=== PATIENT | male | born 1940 | race Asian ===

== ENCOUNTER 2018-01-31 13:16 | Inpatient (IN) | payer OTHER ==
--- NOTE | 2018-01-31 14:29 | ED Physician Chart ---
ED Chief Complaint/HPI - Patient Information Date Seen:: 01/31/18 Time Seen:: 13:40 Chief Complaint:: Right Knee Pain History of Present Illness:: onset x 3 days of sharp MS type right knee pain and swelling; pt denies trauma, H/As, neck pain, weakness, dizziness, paresthesias, vertigo, C/P, SOB, Abd. Pain , A/N/V/D/C, fever, chills, or urinary s/s Allergies:: Allergies Allergy/AdvReac Type Severity Reaction Status Date / Time No Known Allergies Allergy Verified 01/31/18 13:34 Vitals:: Vital Signs - 8 hr 01/31/18 13:40 Temp 98.5 F HR 94 RR 16 BP 100/84 O2 Sat % 98 Historian:: Patient, Family Member Review:: Nurse's Note Reviewed ED Review of Systems - Review of Systems General/Constitutional: No fever, No chills, No weight loss, No weakness, No diaphoresis, No edema, No loss of appetite Skin: No skin lesions, No rash, No bruising Head: No headache, No light-headedness Eyes: No loss of vision, No pain, No diplopia ENT: No earache, No nasal drainage, No sore throat, No tinnitus Neck: No neck pain, No swelling, No thyromegaly, No stiffness, No mass noted Cardio Vascular: No chest pain, No palpitations, No PND, No orthopnea, No edema Pulmonary: No SOB, No cough, No sputum, No wheezing GI: No nausea, No vomiting, No diarrhea, No pain, No melena, No hematochezia, No constipation, No hematemesis G/U: No dysuria, No frequency, No hematuria, No nacturia Musculoskeletal: Bone or joint pain, No back pain, Muscle pain Endocrine: No polyuria, No polydipsia Psychiatric: No prior psych history, No depression, No anxiety, No suicidal ideation, No homicidal ideation, No auditory hallucination, No visual hallucination Hematopoietic: No bruising, No lymphadenopathy Allergic/Immuno: No urticaria, No angioedema Neurological: No syncope, No focal symptoms, No weakness, No paresthesia, No headache, No seizure, No dizziness, No confusion, No vertigo ED Past Medical History - Past Medical History Obtainable: Yes Past Medical History: HTN, CAD, Dyslipidemia, Arthritis Family History: Heart disease, HTN Social History: Non Smoker, No Alcohol, No Drug Use, Surgical History: None Psychiatricy History: None Medication: Reviewed Family Medical History - Family Member Father Living Status: Hx Family Cancer: Yes ED Physical Exam - Physical Examination General/Constitutional: Awake, Well-developed, well-nourished, Alert, No distress, GCS 15, Non-toxic appearing, Ambulatory Head: Atraumatic Eyes: Lids, conjuctiva normal, PERRL, EOMI Skin: Nl inspection, No rash, No skin lesions, No ecchymosis, Well hydrated, No lymphadenopathy ENMT: External ears, nose nl, TM canals nl, Nasal exam nl, Lips, teeth, gums nl , Oropharynx nl, Tonsils nl Neck: Nontender, Full ROM w/o pain, No JVD, No nuchal rigidity, No bruit, No mass, No stridor Respiratory: Nl effort/Exclusion, Clear to Auscultation, No Wheeze/Rhonchi/Rales Cardio Vascular: No murmur, gallop, rubs, NL S1 S2, Carotid/Femoral/Distal pulses equal bilaterally Other Cardio Vascular comments:: Irregular Irregular Rhythm GI: No tenderness/rebounding/guarding, No organomegaly, No hernia, Normal BS's, Nondistended, No mass/bruits, No McBurney tenderness : No CVA tenderness Extremities: Full ROM, normal strength in all extremities, No edema, Normal digits & nails Other Extremities comments:: + Right Knee Tenderness and Swelling; + Right Knee Effusion; good NV functions Neuro/Psych: Alert/oriented, DTR's symmetric, Normal sensory exam, Normal motor strength, Judgement/insight normal, Mood normal, Normal gait, No focal deficits Misc: Normal back, No paraspinal tenderness ED Labs/Radiology/EKG Results - Lab Results Comments:: Reviewed - Radiology Results Comments:: + Right Knee Joint Effusion - EKG Interpretations EKG Time:: 14:14 Rate & Rhythm: 89; Atrial Fibrillation Comments:: IRBBB; LVH; non-specific st-t changes ED Septic Shock - . Is Septic Shock (SBP<90, OR Lactate>4 mmol\L) present?: No - <6hrs of presentation: Vital Signs: Vital Signs - 8 hr 01/31/18 13:40 Temp 98.5 F HR 94 RR 16 BP 100/84 O2 Sat % 98 ED Reassessment (Disposition) - Reassessment Reassessment Condition:: Improved - Diagnosis Diagnosis:: Atrial Fibrillation; Hypokalemia; CHF; Right Knee Joint Effusion - Aftercare/Follow up Instructions Aftercare/Follow-Up Instructions:: Counseled pt regarding lab results/diagnosis & need follow up, Counseled pt & family regarding lab results/diagnosis & need follow up - Patient Disposition Discharge/Transfer:: Acute Care w/in this hosp Accepting Physician:: Dr. Grace Time Called:: 1530 Time Responded:: 15:30 Admitted to:: Telemetry Spoke to:: Dr. Grace Admitting Medical Physician:: Dr. Grace Condition at Disposition:: Stable, Improved
[2018-01-31 14:31] LABS: % EOSINOPHILS 0.8 % (0.0-5.0); % LYMPHOCYTES 17.1 % (20.0-50.0); % MONOCYTES 8.5 % (2.0-10.0); % NEUTROPHILS 73.6 % (40.0-80.0); EOSINOPHILE ABSOLUTE 0.1 Th/cmm (0.1-0.4); HEMATOCRIT 46.8 % (41.0-60); HEMOGLOBIN 15.7 gm/dL (12-16); LYMPHOCYTE ABSOLUTE 1.5 Th/cmm (1.5-3.0); MEAN CELL VOLUME 88.7 fl (80-99); MEAN CORPUSCULAR HEMOGLOBIN 29.7 pg (27.0-31.0); MEAN CORPUSCULAR HGB CONC 33.5 pg (28.0-36.0); MEAN PLATELET VOLUME 8.8 fl; MONOCYTE ABSOLUTE 0.7 Th/cmm (0.3-1.0); NEUTROPHILE ABSOLUTE 6.4 Th/cmm (1.8-8.0); PLATELET COUNT 147 Th/cmm (150-400); RED BLOOD COUNT 5.28 Mil/cmm (3.80-5.80); RED CELL DISTRIBUTION WIDTH 14.2 % (11.5-20.0); WHITE BLOOD COUNT 8.7 Th/cmm (4.8-10.8)
[2018-01-31 14:42] LABS: INR 1.35 (0.5-1.4); PROTHROMBIN TIME (TEST) 13.8 SECONDS (9.5-11.5)
[2018-01-31 14:47] LABS: ALB/GLOB RATIO 1.5 (1.0-1.8); ALKALINE PHOSPHATASE 40 U/L (34-104); ANION GAP 11.7 (7.0-16.0); BILIRUBIN,TOTAL 2.1 mg/dL (0.3-1.0); BUN - UREA NITROGEN 17 mg/dL (7-25); CALCIUM SERUM 9.4 mg/dL (8.6-10.3); CARBON DIOXIDE 25.7 mEq/L (21.0-31.0); CHLORIDE 103 mEq/L (98-107); CHOLESTEROL 152 mg/dL (<200); CREATININE - SERUM 1.3 mg/dL (0.7-1.3); CREATININE KINASE 86 U/L (30-223); GLUCOSE 141 mg/dL (70-105); HDL -HIGH DENSITY LIPOPROTEIN 33 mg/dL (23-92); POTASSIUM SERUM 3.4 mEq/L (3.5-5.1); SGOT 17 U/L (13-39); SGPT/ALT 17 U/L (7-52); SODIUM SERUM 137 mEq/L (136-145); TOTAL PROTEIN,SERUM 6.7 gm/dL (6.0-8.3); TRIGLYCERIDES 76 mg/dL (<150); URIC ACID 5.5 mg/dL (4.4-7.6)
[2018-01-31 14:59] LABS: DDIMER QUANT < 100 ng/mL (100-400)
[2018-01-31] MEDS ORDERED: Potassium Chloride 20 mEq ER Tab PO ONE ×2 (15:41→16:14)
[2018-01-31] MEDS ORDERED: Acetaminophen 500 MG TAB PO PRN (17:25)
[2018-01-31] MEDS ORDERED: Hydrocodone/APAP 5mg/325mg Tab PO PRN (17:27)
[2018-01-31] MEDS ORDERED: Morphine Sulfate 2 mg/mL 1mL Syr IVP PRN ×2 (17:28→17:30)
[2018-01-31 18:08] VITALS: BP 178/118
[2018-01-31] MEDS: Morphine Sulfate 2 mg/mL 1mL Syr IVP PRN (20:25)
[2018-01-31 22:22] LABS: URINE SOURCE CLEAN C
[2018-01-31 22:23] LABS: URINE BILIRUBIN NEGATIVE (NEGATIVE); URINE BLOOD NEGATIVE (NEGATIVE); URINE GLUCOSE (UA) NEGATIVE (NEGATIVE); URINE KETONE NEGATIVE (NEGATIVE); URINE LEUKOCYTE ESTERASE NEGATIVE (NEGATIVE); URINE NITRATE NEGATIVE (NEGATIVE); URINE PROTEIN NEGATIVE (NEGATIVE); URINE UROBILINOGEN 0.2 E.U./dL (0.2 - 1.0)
[2018-01-31 22:32] LABS: URINE CLARITY CLEAR (CLEAR); URINE COLOR YELLOW; URINE MICROSCOPIC INDICATED? NO
[2018-02-01 06:33] LABS: % BASOPHILS 0.3 % (0.0-2.0); % EOSINOPHILS 2.8 % (0.0-5.0); % LYMPHOCYTES 24.3 % (20.0-50.0); % MONOCYTES 11.3 % (2.0-10.0); % NEUTROPHILS 61.3 % (40.0-80.0); EOSINOPHILE ABSOLUTE 0.2 Th/cmm (0.1-0.4); HEMATOCRIT 45.5 % (41.0-60); HEMOGLOBIN 15.4 gm/dL (12-16); LYMPHOCYTE ABSOLUTE 1.9 Th/cmm (1.5-3.0); MEAN CELL VOLUME 87.7 fl (80-99); MEAN CORPUSCULAR HEMOGLOBIN 29.8 pg (27.0-31.0); MEAN PLATELET VOLUME 9.3 fl; MONOCYTE ABSOLUTE 0.9 Th/cmm (0.3-1.0); PLATELET COUNT 141 Th/cmm (150-400); RED BLOOD COUNT 5.18 Mil/cmm (3.80-5.80); RED CELL DISTRIBUTION WIDTH 14.1 % (11.5-20.0)
[2018-02-01 06:35] LABS: INR 1.16 (0.5-1.4)
[2018-02-01 06:54] LABS: ALB/GLOB RATIO 1.6 (1.0-1.8); ALKALINE PHOSPHATASE 39 U/L (34-104); ANION GAP 11.2 (7.0-16.0); BILIRUBIN,TOTAL 1.8 mg/dL (0.3-1.0); BUN - UREA NITROGEN 19 mg/dL (7-25); CALCIUM SERUM 9.1 mg/dL (8.6-10.3); CARBON DIOXIDE 25.6 mEq/L (21.0-31.0); CHLORIDE 105 mEq/L (98-107); CHOLESTEROL 148 mg/dL (<200); CREATININE - SERUM 1.1 mg/dL (0.7-1.3); GLUCOSE 97 mg/dL (70-105); HDL -HIGH DENSITY LIPOPROTEIN 30 mg/dL (23-92); MAGNESIUM 2.3 mg/dL (1.9-2.7); POTASSIUM SERUM 3.8 mEq/L (3.5-5.1); SGOT 18 U/L (13-39); SGPT/ALT 19 U/L (7-52); SODIUM SERUM 138 mEq/L (136-145); TOTAL PROTEIN,SERUM 6.5 gm/dL (6.0-8.3); TRIGLYCERIDES 83 mg/dL (<150)
[2018-02-01 07:34] LABS: ESR SEDIMENTATION SED RATE 6 mm/hr (0-20)
--- NOTE | 2018-02-01 07:49 | Diagnostic Imaging Report ---
Bilateral lower extremity DVT study HISTORY: Pain COMPARISON: None Technique: Longitudinal and transverse sonographic images of the bilateral lower extremity veins were obtained with doppler analysis. FINDINGS: There is normal compressibility, augmentation and phasicity of the bilateral common femoral, superficial femoral, popliteal, and posterior tibial veins. No thrombus is visualized. IMPRESSION: No evidence of thrombus within the bilateral lower extremity veins.
--- NOTE | 2018-02-01 07:49 | Diagnostic Imaging Report ---
Right knee 3 views Indication: Pain and swelling Comparison: none Findings: Moderate degenerative changes are seen with osteophytic spurs. There may be small calcifications in the knee joint. There is a moderate-sized joint effusion. No evidence of acute fracture or focal soft tissue swelling. Atherosclerosis is noted. Impression: No evidence of an acute fracture. Moderate degenerative changes. Moderate size joint effusion. If necessary MRI follow-up may be obtained. Atherosclerotic vascular disease. In the setting of trauma, if clinical symptoms persist and there is continued concern for an occult fracture, follow up exams in 5-7 days is suggested.
[2018-02-01] MEDS: Hydrocodone/APAP 5mg/325mg Tab PO PRN ×3 (08:52→18:45)
[2018-02-01] MEDS ORDERED: POTASSIUM GLUCONATE 99 MG PO SCH (09:00)
--- NOTE | 2018-02-01 12:59 | History & Physical ---
ADMIT DATE: 02/01/2018 CHIEF COMPLAINT: Right knee pain and swelling for x 3 days. HISTORY OF PRESENT ILLNESS: The patient is a very pleasant 77-year-old gentleman with a history of atrial fibrillation, on Xarelto, essential hypertension, dyslipidemia, osteoarthritis, who was in his usual state of health until 4 days ago when he started noticing left knee swelling and pain. The patient denies any similar episodes and denies any trauma. He does walk on a daily basis about 4 blocks and 3-4 days ago after he started noticing swelling. He came into the ED given improvement and pertinent findings include a right knee x-ray showing moderate-sized effusion with no fractures. There is evidence of DJD. A duplex venous ultrasound was also done showing no DVT. The patient has been admitted to the medical/surgical floor for further management and care. PAST MEDICAL HISTORY: As noted above. AFib was diagnosed about 3 years ago. PAST SURGICAL HISTORY: None reported. FAMILY HISTORY: Noncontributory to this admission. SOCIAL HISTORY: No tobacco, ETOH, or illicit drug usage. ALLERGIES: NKDA. OUTPATIENT MEDICATIONS: Xarelto 20 every day, benazepril 10 b.i.d., loratadine 10 every day, magnesium tablets 250 every day, metoprolol 100 mg b.i.d., potassium tab 99 mg every day, and simvastatin 10 at bedtime. REVIEW OF SYSTEMS: CONSTITUTIONAL: Denies any fever, chills, and no recent weight loss. CARDIOVASCULAR: No chest pain, no palpitations. PULMONARY: No cough or phlegm production. GASTROINTESTINAL: No bowel habit changes. GENITOURINARY: No bladder habit changes. No UTI symptomatology. MUSCULOSKELETAL: Please refer to HPI. PHYSICAL EXAMINATION: VITAL SIGNS: Temperature 96.4, afebrile, pulse 79, respirations 19, BP 149/85, satting 100% on room air. GENERAL: Well-developed, well-nourished male, not in acute distress. He is awake, alert and oriented x 3. HEAD AND NECK: Normocephalic, atraumatic. Pupils are reactive to light. Extraocular movements are intact. Oropharynx is moist and clear. CARDIAC: Irregularly irregular rhythm with no murmurs. LUNGS: Clear to auscultation bilaterally. ABDOMEN: Soft, supple, nontender, nondistended, normoactive bowel sounds. EXTREMITIES: Right knee exam, there is swelling noted on the lateral and medial aspects with mild warmth to touch, but no erythema noted. There is decreased range of motion secondary to pain. There is no pedal edema noted. No clubbing or cyanosis as well. NEUROLOGIC: Grossly intact, nonfocal. LABORATORY DATA: CBC was essentially within normal limits. Potassium 3.4, otherwise chemistry was within normal limits. Glucose 141. Total bilirubin 2.1, otherwise LFTs were within normal limits. BNP 248. UA was essentially within normal limits. INR 1.35 on admission, it is currently 1.16. DIAGNOSTICS: Please refer to the HPI. ASSESSMENT: 1. Acute right knee effusion. This is likely secondary to mild microtrauma trauma (from daily exercise) in conjunction with his chronic usage of Xarelto. 2. History of atrial fibrillation. 3. History of essential hypertension. 4. History of previous dyslipidemia. 5. History of osteoarthritis/degenerative joint disease. PLAN: The patient has been admitted to [facility] for further management and care. The patient has been placed on pain medications including Dakota and morphine for severe pain. All his meds have been resumed except for the Xarelto and Orthopedic Surgery eval has been asked for possible arthrocentesis. JOB# [id number] [facility]
[2018-02-01] MEDS ORDERED: ETHYL CHLORIDE TP ONE (17:28)
[2018-02-01] MEDS: Morphine Sulfate 2 mg/mL 1mL Syr IVP PRN (18:35)
--- NOTE | 2018-02-02 01:59 | Consultation ---
DATE OF CONSULTATION: 02/01/2018 ORTHOPEDIC SURGERY CONSULTATION HISTORY OF PRESENT ILLNESS: The patient is a 77-year-old gentleman admitted to [facility] via the Emergency Room on 01/31/2018 with diagnoses of pain and swelling of the right knee, atrial fibrillation, hypokalemia and congestive heart failure. I was called in orthopedic consultation by the admitting physician regarding the patient's right knee situation. PAST HISTORY: The patient has had various diagnoses including atrial fibrillation (on Xarelto), hypertension, osteoarthritis, dyslipidemia and via the Emergency Room congestive heart failure and hypokalemia. The patient stated that he has some arthritis of his knees, but is able to take his walks every day. Approximately 4 or 5 days ago, he came back from his walk and noted pain and swelling of his right knee, which has persisted and increased. PRIOR SURGERIES: None mentioned. FAMILY HISTORY: Noncontributory. REVIEW OF SYSTEMS: Noncontributory. PHYSICAL EXAMINATION: The patient was examined in his hospital room at [facility]. He was not stood or moved about much because of the pain and swelling of his right knee. Examination was focused on his lower extremities. Left lower extremity is unremarkable. He has full range of motion of the knee. Ankle is dry. Peripheral pulses are good. Right lower extremity, the knee is swollen. There is no increased warmth. The patella is ballottable. Motion of the knee is restricted at 35-65 degrees. There is slight swelling of the ankle. Peripheral pulses are good. Skin color and temperature normal. There is no calf tenderness. Homans sign is negative. IMAGING DATA: I reviewed x-rays of the right knee, 4 views in the PACS system dated 01/31/2018. Moderate osteoarthritic changes are noted with sharpening of the corners, narrowing of the joint spaces and osteophytes present. No loose bodies were noted. Moderate swelling or fluid collection in the knee was noted. A venous ultrasound in the records, which was negative for DVT. DIAGNOSES: 1. Hemarthrosis, right knee; rule out sepsis, gout and arthritic fluid. 2. Atrial fibrillation, on blood thinners 3. Additional medical diagnoses as above. PLAN: After proper consenting arthrocentesis under sterile conditions and with local anesthetic was performed with an 18-gauge needle, I recovered approximately 10 mL of thick blood. There was more in the knee, but it was apparently clotted and I was not able to recover it all with an 18-gauge needle. He has apparently had an intra-articular bleed, probably related to his Xarelto consumption. He can be released on crutches with partial weightbearing as tolerated on the right knee / leg and he was advised regarding warm packs and massage on the hemarthrosis at home to help it resolve and gentle range of motion exercises. I gave him my card and he can be followed as an outpatient. Thank you for this interesting referral. JOB# [id number] [facility]TD[facility]
--- NOTE | 2018-02-02 11:07 | Discharge Summary ---
DATE OF DISCHARGE: 02/01/2018 ADMITTING DIAGNOSES: Right knee pain/right knee effusion/right knee swelling. SECONDARY DIAGNOSES: History of atrial fibrillation, essential hypertension, dyslipidemia, osteoarthritis, and degenerative joint disease. DISCHARGE DIAGNOSES: Acute right knee effusion likely secondary to mild trauma in conjunction with chronic usage of Xarelto - clinically improved, status post arthrocentesis. CONSULTANTS: Adair Jerome. MAJOR PROCEDURES: Arthrocentesis done on 02/01/2018. BRIEF HOSPITAL COURSE: This is a 77-year-old male who presented with a 3-day history of worsening right knee pain and swelling. The patient denied any trauma, but is on chronic Xarelto secondary to his atrial fibrillation. He states that he walks about 4 blocks on a daily basis, but again denies any history of falling or trauma. At the ER, lower extremity ultrasound showed no evidence of thrombus, but on physical exam, there was noticeable edema both laterally and medially on the right knee. It was mildly warm to touch, but had no erythema. Patient had no signs or symptoms of infection. The patient was admitted to the Medical Surgical floor and was placed on pain medications. Xarelto was placed on hold. On hospital day #2, he underwent the above-mentioned procedure without any complications. MEDICATIONS ON DISCHARGE: Tylenol 500 mg q. 4 p.r.n. for moderate pain and Edmonds 5/325 one tab q.4 p.r.n. or q.6 p.r.n. for severe pain, benazepril 10 b.i.d., loratadine 10 every day, magnesium 250 mg daily, metoprolol 100 mg b.i.d., potassium 99 mg every day, simvastatin 10 mg at bedtime, Xarelto 20 mg every day. CONDITION ON DISCHARGE: Stable. DISPOSITION: The patient was instructed to follow up with primary care doctor within 2-3 days and he is to followup with Orthopedic Surgery as scheduled. JOB# [id number] MARGARITA
== END 2018-02-01 20:06 | disposition home or self-care (01) | DRG 351 ==
LOC: ER 13:16 → MSI 17:16
PROVIDERS: ADMIT Internal Medicine; ATTEND Internal Medicine
PROC: 0S9C3ZZ Drainage of Right Knee Joint, Percutaneous Approach (ICD-10-PCS; principal; 2018-02-01)
DX: M25.461 Effusion, right knee (principal); I48.91 Unspecified atrial fibrillation; I50.9 Heart failure, unspecified; I11.0 Hypertensive heart disease with heart failure; E78.5 Hyperlipidemia, unspecified; M19.90 Unspecified osteoarthritis, unspecified site; I25.10 Atherosclerotic heart disease of native coronary artery without angina pectoris; E87.6 Hypokalemia; M25.061 Hemarthrosis, right knee; Z79.01 Long term (current) use of anticoagulants; Z82.49 Family history of ischemic heart disease and other diseases of the circulatory system
CPT/HCPCS: 36415-UA; 73562-TC-RT; 80053-TC; 80061-TC; 81003-TC; 82310-TC; 82550-TC; 83735-TC; 83880-TC; 84484-TC; 84550-TC; 85025-TC; 85379-TC; 85610-TC; 85652-TC; 86141-TC; 93005; 93970-TC-50; 94760; J2270; Z7610

== ENCOUNTER 2018-02-05 10:13 | Emergency (ER) | payer OTHER ==
[2018-02-05 11:06] LABS: HEMATOCRIT 44.1 % (41.0-60); HEMOGLOBIN 14.8 gm/dL (12-16); MEAN CELL VOLUME 87.9 fl (80-99); MEAN CORPUSCULAR HEMOGLOBIN 29.5 pg (27.0-31.0); MEAN CORPUSCULAR HGB CONC 33.5 pg (28.0-36.0); MEAN PLATELET VOLUME 8.1 fl; PLATELET COUNT 192 Th/cmm (150-400); RED BLOOD COUNT 5.01 Mil/cmm (3.80-5.80); RED CELL DISTRIBUTION WIDTH 14.2 % (11.5-20.0); WHITE BLOOD COUNT 8.3 Th/cmm (4.8-10.8)
[2018-02-05 11:19] LABS: INR 1.52 (0.5-1.4); PROTHROMBIN TIME (TEST) 15.5 SECONDS (9.5-11.5)
[2018-02-05 11:21] LABS: ANION GAP 9.9 (7.0-16.0); BUN - UREA NITROGEN 15 mg/dL (7-25); CALCIUM SERUM 9.2 mg/dL (8.6-10.3); CARBON DIOXIDE 26.9 mEq/L (21.0-31.0); CHLORIDE 102 mEq/L (98-107); GLUCOSE 97 mg/dL (70-105); POTASSIUM SERUM 3.8 mEq/L (3.5-5.1); SODIUM SERUM 135 mEq/L (136-145)
--- NOTE | 2018-02-05 11:35 | ED Physician Chart ---
ED Chief Complaint/HPI - Patient Information Date Seen:: 02/05/18 Time Seen:: 10:59 Chief Complaint:: rt knee swelling Allergies:: Allergies Allergy/AdvReac Type Severity Reaction Status Date / Time No Known Allergies Allergy Verified 01/31/18 13:34 Vitals:: Vital Signs - 8 hr 02/05/18 10:31 Temp 98.3 F HR 85 RR 18 BP 140/95 O2 Sat % 97 ED Review of Systems - Review of Systems General/Constitutional: No fever, No chills, No weight loss, No weakness, No diaphoresis, No edema, No loss of appetite Skin: No skin lesions, No rash, No bruising Head: No headache, No light-headedness Eyes: No loss of vision, No pain, No diplopia ENT: No earache, No nasal drainage, No sore throat, No tinnitus Neck: No neck pain, No swelling, No thyromegaly, No stiffness, No mass noted Cardio Vascular: No chest pain, No palpitations, No PND, No orthopnea, No edema Pulmonary: No SOB, No cough, No sputum, No wheezing GI: No nausea, No vomiting, No diarrhea, No pain, No melena, No hematochezia, No constipation, No hematemesis G/U: No dysuria, No frequency, No hematuria Musculoskeletal: No bone or joint pain, No back pain, No muscle pain Endocrine: No polyuria, No polydipsia Psychiatric: No prior psych history, No depression, No anxiety, No suicidal ideation Hematopoietic: No bruising, No lymphadenopathy Allergic/Immuno: No urticaria, No angioedema Neurological: No syncope, No focal symptoms, No weakness, No paresthesia, No headache, No seizure, No dizziness, No confusion, No vertigo ED Past Medical History - Past Medical History Past Medical History: HTN Family Medical History - Family Member Father History Unknown: Yes Living Status: Hx Family Cancer: Yes ED Physical Exam - Physical Examination Other Skin comments:: bruising rt post thigh ENMT: External ears, nose nl Neck: Nontender Respiratory: Nl effort/Exclusion Cardio Vascular: No murmur, gallop, rubs GI: No tenderness/rebounding/guarding : No CVA tenderness Other Extremities comments:: rt knee swelling Neuro/Psych: Alert/oriented Misc: Normal back ED Assessment - Assessment General Assessment: rt knee swelling trauma s/p drainage knee effusion previously by ortho pt on xarelto ED Septic Shock - . Is Septic Shock (SBP<90, OR Lactate>4 mmol\L) present?: No - <6hrs of presentation: Vital Signs: Vital Signs - 8 hr 02/05/18 10:31 Temp 98.3 F HR 85 RR 18 BP 140/95 O2 Sat % 97 ED Reassessment (Disposition) - Reassessment Reassessment Condition:: Improved - Diagnosis Diagnosis:: rt knee sprain trauma effusion nofx - Aftercare/Follow up Instructions Notes:: pt given counselling us veous no dvt xray no fx s/p acewrap place by nurse under my guidance - Patient Disposition Discharge/Transfer:: Home Condition at Disposition:: Stable
[2018-02-05 12:01] LABS: URINE BILIRUBIN NEGATIVE (NEGATIVE); URINE BLOOD NEGATIVE (NEGATIVE); URINE GLUCOSE (UA) NEGATIVE (NEGATIVE); URINE KETONE NEGATIVE (NEGATIVE); URINE LEUKOCYTE ESTERASE NEGATIVE (NEGATIVE); URINE NITRATE NEGATIVE (NEGATIVE); URINE PROTEIN NEGATIVE (NEGATIVE); URINE SOURCE CLEAN C
[2018-02-05 12:19] LABS: URINE CLARITY CLEAR (CLEAR); URINE COLOR YELLOW; URINE MICROSCOPIC INDICATED? NO
--- NOTE | 2018-02-06 08:19 | Diagnostic Imaging Report ---
Portable chest x-ray Time: 1101 History: Shortness of breath Allowing for portable technique the heart size is normal. No focal pulmonary parenchymal processes. No hilar or mediastinal abnormalities. Impression: No acute abnormalities.
--- NOTE | 2018-02-06 08:30 | Diagnostic Imaging Report ---
EXAM: Doppler ultrasound examination of right lower extremity HISTORY: DVT COMPARISON: 01/31/2018 FINDINGS: Real-time ultrasound examination of right lower extremity was performed utilizing color Doppler technique. The study demonstrates normal compressibility and augmentation of deep venous system throughout. IMPRESSION: No evidence for deep venous thrombosis right lower extremity.
--- NOTE | 2018-02-06 08:31 | Diagnostic Imaging Report ---
Exam: Right knee joint portable exam HISTORY: Swelling pain. Findings: Portable examination of the right knee joint as 1126 reviewed, the study demonstrates no evidence for acute fracture dislocation. Degenerative narrowing of joint space and flattening of tibial plateau is appreciated. The patella is intact. There is no evidence for joint effusion. If ligamentous or meniscal injury suspected MRI examination might be helpful. IMPRESSION: Degenerative changes right knee joint, osteoarthritis
== END 2018-02-05 12:40 | disposition home or self-care (01) ==
LOC: ER 10:13
DX: S83.91XA Sprain of unspecified site of right knee, initial encounter (principal); I10 Essential (primary) hypertension; X58.XXXA Exposure to other specified factors, initial encounter; Y93.89 Activity, other specified; Y92.89 Other specified places as the place of occurrence of the external cause; Y99.8 Other external cause status
CPT/HCPCS: 36415-UA; 71045-TC; 73562-TC-RT; 80048-TC; 81003-TC; 85007-TC; 85025-TC; 85610-TC; 93971-TC-RT